=== PATIENT | male | born 1995 | race Caucasian/White ===

== ENCOUNTER 2020-12-14 17:00 | Emergency (ER) | payer OTHER ==
[2020-12-14 17:06] VITALS: RESP 18; TEMP 97.9
--- NOTE | 2020-12-14 18:32 | ED ---
General Adult HPI - General Chief complaint: Overdose Stated complaint: Overdose Time Seen by Provider: 12/14/20 17:03 Source: patient, EMS, RN notes reviewed, old records reviewed Mode of arrival: EMS Limitations: no limitations - History of Present Illness Initial comments: 25-year-old male presents with overdose. He was compensation agent Narcan by EMS total of 4 mg, 2 intranasal, to IV. He admits to snorting both heroin, possibly fentanyl, and Xanax. He states this was not a suicide attempt. He denies any suicidal ideation or increased depression. This was an accidental overdose. He has no physical complaints and is eager for discharge. - Related Data Previous Rx's Medication Instructions Recorded Permethrin 5% Cream [Elimite] 1 applic TOPICAL ONCE #45 cream..g. 04/18/17 hydrOXYzine HCL [Atarax] 25 mg PO TID PRN #20 tab 04/18/17 Allergies Allergy/AdvReac Type Severity Reaction Status Date / Time No Known Allergies Allergy Verified 12/14/20 17:01 Review of Systems ROS Statement: Those systems with pertinent positive or pertinent negative responses have been documented in the HPI. ROS Other: All systems not noted in ROS Statement are negative. Past Medical History Past Medical History: No Reported History History of Any Multi-Drug Resistant Organisms: None Reported Past Surgical History: No Surgical Hx Reported Past Psychological History: ADD/ADHD, Anxiety, Depression Smoking Status: Current every day smoker, Vaper Past Alcohol Use History: None Reported Past Drug Use History: Heroin General Exam Limitations: no limitations General appearance: alert, in no apparent distress Head exam: Present: atraumatic, normocephalic Eye exam: Present: normal appearance, PERRL ENT exam: Present: normal exam Neck exam: Present: normal inspection. Absent: tenderness, meningismus Respiratory exam: Present: normal lung sounds bilaterally. Absent: respiratory distress, wheezes Cardiovascular Exam: Present: normal rhythm, tachycardia GI/Abdominal exam: Present: soft. Absent: distended, tenderness Extremities exam: Present: normal inspection, normal capillary refill. Absent: pedal edema, calf tenderness Neurological exam: Present: alert, oriented X3, CN II-XII intact. Absent: motor sensory deficit Psychiatric exam: Absent: suicidal ideation Skin exam: Present: warm, dry, intact. Absent: cyanosis, diaphoretic Course Vital Signs 12/14/20 12/14/20 17:01 18:00 Temperature 97.9 F Pulse Rate 104 H 110 H Respiratory 18 18 Rate Blood Pressure 133/92 130/85 O2 Sat by Pulse 99 95 Oximetry Medical Decision Making - Medical Decision Making Patient agreed to ED observation, observed for approximately 90 minutes at that time. Patient is asking for discharge. He has not required any additional Narcan. He's been breathing room air with no respiratory depression. He is alert and accompanied by his . Disposition Clinical Impression: Accidental drug overdose, Poisoning by opiates and related narcotics, other Disposition: HOME SELF-CARE Condition: Fair Instructions (If sedation given, give patient instructions): Adult Overdose (ED) Is patient prescribed a controlled substance at d/c from ED?: No Referrals: None,Stated [Primary Care Provider] - 1-2 days Edwina Sadler MD [REFERRING] - 1-2 days Time of Disposition: 18:32
[2020-12-14 18:45] VITALS: BP 106/77; PULSE 119
== END 2020-12-14 18:44 | disposition home or self-care (01) ==
LOC: EC 17:00
DX: T40.601A Poisoning by unspecified narcotics, accidental (unintentional), initial encounter (principal); F17.200 Nicotine dependence, unspecified, uncomplicated; F32.9 Major depressive disorder, single episode, unspecified
CPT/HCPCS: 99285

== ENCOUNTER 2022-03-24 08:49 | Emergency (ER) | payer OTHER ==
[2022-03-24 09:04] VITALS: RESP 18; TEMP 98.2
[2022-03-24] MEDS ORDERED: SODIUM CHLORIDE 0.9% 1,000 ML IV STA (09:10)
[2022-03-24 09:49] LABS: Basophils % (A) 0 %; Eosinophils % (A) 0 %; HCT 38.4 % (39.0-53.0); Lymphocytes # (A) 2.5 k/uL (1.0-4.8); Lymphocytes % (A) 25 %; MCH 28.4 pg (25.0-35.0); MCHC 33.9 g/dL (31.0-37.0); MCV 83.7 fL (80.0-100.0); Mean Platelet Volume 7.4; Monocytes # (A) 0.5 k/uL (0-1.0); Monocytes % (A) 5 %; Neutrophils # (A) 6.6 k/uL (1.3-7.7); Neutrophils % (A) 65 %; Platelet Count 282 k/uL (150-450); RBC 4.58 m/uL (4.30-5.90); RDW 13.7 % (11.5-15.5); WBC 10.1 k/uL (3.8-10.6)
[2022-03-24 10:16] LABS: ALT 77 U/L (4-49); AST 52 U/L (17-59); Acetaminophen <10.0 ug/mL; African American GFR (CKD) >90 (>60 ml/min/1.73 sqM); Albumin 4.2 g/dL (3.5-5.0); Alcohol <10 mg/dL; Alkaline Phosphatase 79 U/L (38-126); Anion Gap 11 mmol/L; Blood Urea Nitrogen 16 mg/dL (9-20); Calcium 8.9 mg/dL (8.4-10.2); Carbon Dioxide 28 mmol/L (22-30); Chloride 99 mmol/L (98-107); Creatine Kinase 83 U/L (55-170); Glucose 111 mg/dL (74-99); Non-African American GFR(CKD) >90 (>60 ml/min/1.73 sqM); Potassium 3.5 mmol/L (3.5-5.1); Salicylate <1.0 mg/dL; Sodium 138 mmol/L (137-145); Total Bilirubin 0.4 mg/dL (0.2-1.3); Total Protein 7.1 g/dL (6.3-8.2)
--- NOTE | 2022-03-24 10:17 | XR ---
EXAMINATION TYPE: XR chest 2V DATE OF EXAM: 03/24/2022 COMPARISON: NONE HISTORY: Overdose, altered mental status TECHNIQUE: Frontal and lateral views of the chest are obtained. FINDINGS: There is no focal air space opacity, pleural effusion, or pneumothorax seen. The cardiac silhouette size is within normal limits. There are overlying leads. The osseous structures are intac t. IMPRESSION: No acute cardiopulmonary process.
--- NOTE | 2022-03-24 12:27 | ED ---
Overdose HPI - General Chief Complaint: Overdose Stated Complaint: overdose Time Seen by Provider: 03/24/22 08:55 Source: EMS Mode of arrival: EMS Limitations: no limitations - History of Present Illness Initial Comments: 27-year-old male who presents to the emergency department after suspected overdose. EMS provided the history. States that the patient was found unconscious by his girlfriend. She called EMS who instructed that she needed to start doing CPR. Unaware if this was provided. I am then told that the patient was thrown and an ice bath. When EMS arrived on scene he was awake alert and answering questions however delayed. Patient admits to me that he crushed up a portion of a Suboxone film and snorted it last night at 8 pm. States that he intermittently uses Suboxone. Also admits to meth use however last use of this was yesterday. Patient denies use of any other illicit substances. Denies intentional harm. No headache, no chest pain, no nausea or vomiting. Patient is very reluctant to provide any history as he is already on probation. No other alleviating, precipitating or modifying factors - Related Data Previous Rx's Medication Instructions Recorded Permethrin 5% Cream [Elimite] 1 applic TOPICAL ONCE #45 cream..g. 04/18/17 hydrOXYzine HCL [Atarax] 25 mg PO TID PRN #20 tab 04/18/17 Allergies Allergy/AdvReac Type Severity Reaction Status Date / Time No Known Allergies Allergy Verified 03/24/22 09:04 Review of Systems ROS Statement: Those systems with pertinent positive or pertinent negative responses have been documented in the HPI. ROS Other: All systems not noted in ROS Statement are negative. Past Medical History Past Medical History: No Reported History History of Any Multi-Drug Resistant Organisms: None Reported Past Surgical History: No Surgical Hx Reported Past Psychological History: ADD/ADHD, Anxiety, Depression Smoking Status: Current every day smoker, Vaper Past Alcohol Use History: None Reported Past Drug Use History: Heroin General Exam Limitations: no limitations General appearance: lethargic, other (Will arouse to tactile and loud verbal stimuli) Head exam: Present: atraumatic, normocephalic, normal inspection Eye exam: Present: normal appearance, PERRL, EOMI. Absent: scleral icterus, conjunctival injection, periorbital swelling ENT exam: Present: normal exam, mucous membranes moist Neck exam: Present: normal inspection. Absent: tenderness, meningismus, lymphadenopathy Respiratory exam: Present: normal lung sounds bilaterally. Absent: respiratory distress, wheezes, rales, rhonchi, stridor Cardiovascular Exam: Present: normal rhythm, tachycardia, normal heart sounds. Absent: systolic murmur, diastolic murmur, rubs, gallop, clicks GI/Abdominal exam: Present: soft, normal bowel sounds. Absent: distended, tenderness, guarding, rebound, rigid Extremities exam: Present: normal inspection, full ROM, normal capillary refill. Absent: tenderness, pedal edema, joint swelling, calf tenderness Back exam: Present: normal inspection Neurological exam: Present: altered, oriented X3, CN II-XII intact Psychiatric exam: Present: normal affect, normal mood Skin exam: Present: warm, dry, intact, normal color. Absent: rash Course Vital Signs 03/24/22 03/24/22 08:52 13:00 Temperature 98.2 F Pulse Rate 104 H 81 Respiratory 18 18 Rate Blood Pressure 136/95 122/80 O2 Sat by Pulse 97 100 Oximetry - Reevaluation(s) Reevaluation #1: At this time the patient has been coaxed several times to provide urine sample however still has not at this time. He is awake, alert. Patient is stable for discharge home at this time. Will obtain serum drug screen 03/24/22 12:23 Medical Decision Making - Medical Decision Making Upon arrival patient was placed into room 12. Thorough history and physical exam was performed. Patient is able to arouse with verbal stimuli and therefore Narcan was not administered. Laboratory studies are conducted. Chest x-rays performed as there is report that CPR may have been administered. Patient is observed in the emergency room for several hours. He does become more alert. I did request a urine sample on multiple occasions however the patient is reluctant to provide one. I did order a serum sample. This is a send out. Patient will be discharged home. Father is at bedside and is agreeable to this plan. Directed to stop using drugs. Follow up with his primary care doctor in 2-4 days and return for any new or worsening symptoms. Patient agreeable discharged home in stable condition - Lab Data Result diagrams: 03/24/22 09:46 03/24/22 09:46 Lab Results 03/24/22 03/24/22 03/24/22 Range/Units 09:46 09:46 09:46 WBC 10.1 (3.8-10.6) k/uL RBC 4.58 (4.30-5.90) m/uL Hgb 13.0 (13.0-17.5) gm/dL Hct 38.4 L (39.0-53.0) % MCV 83.7 (80.0-100.0) fL MCH 28.4 (25.0-35.0) pg MCHC 33.9 (31.0-37.0) g/dL RDW 13.7 (11.5-15.5) % Plt Count 282 (150-450) k/uL MPV 7.4 Neutrophils % 65 % Lymphocytes % 25 % Monocytes % 5 % Eosinophils % 0 % Basophils % 0 % Neutrophils # 6.6 (1.3-7.7) k/uL Lymphocytes # 2.5 (1.0-4.8) k/uL Monocytes # 0.5 (0-1.0) k/uL Eosinophils # 0.0 (0-0.7) k/uL Basophils # 0.0 (0-0.2) k/uL Sodium 138 (137-145) mmol/L Potassium 3.5 (3.5-5.1) mmol/L Chloride 99 (98-107) mmol/L Carbon Dioxide 28 (22-30) mmol/L Anion Gap 11 mmol/L BUN 16 (9-20) mg/dL Creatinine 0.80 (0.66-1.25) mg/dL Est GFR (CKD-EPI)AfAm >90 (>60 ml/min/1.73 sqM) Est GFR (CKD-EPI)NonAf >90 (>60 ml/min/1.73 sqM) Glucose 111 H (74-99) mg/dL Plasma Lactic Acid Willian 1.1 (0.7-2.0) mmol/L Calcium 8.9 (8.4-10.2) mg/dL Total Bilirubin 0.4 (0.2-1.3) mg/dL AST 52 (17-59) U/L ALT 77 H (4-49) U/L Alkaline Phosphatase 79 (38-126) U/L Creatine Kinase 83 (55-170) U/L Troponin I (0.000-0.034) ng/mL Total Protein 7.1 (6.3-8.2) g/dL Albumin 4.2 (3.5-5.0) g/dL Salicylates <1.0 mg/dL Blood Opiate Screen Blood Methadone Screen Bld Propoxyphene Scrn Acetaminophen <10.0 ug/mL Bld Barbiturates Scrn Bld Phencyclidine Scrn Bld Amphetamines Scrn Bl Benzodiazepine Scrn Bld Cocaine/Metab Scrn Bld Cannabinoid Screen Serum Alcohol <10 mg/dL Plasma/Serum Ethyl Alc 03/24/22 03/24/22 Range/Units 09:46 13:26 WBC (3.8-10.6) k/uL RBC (4.30-5.90) m/uL Hgb (13.0-17.5) gm/dL Hct (39.0-53.0) % MCV (80.0-100.0) fL MCH (25.0-35.0) pg MCHC (31.0-37.0) g/dL RDW (11.5-15.5) % Plt Count (150-450) k/uL MPV Neutrophils % % Lymphocytes % % Monocytes % % Eosinophils % % Basophils % % Neutrophils # (1.3-7.7) k/uL Lymphocytes # (1.0-4.8) k/uL Monocytes # (0-1.0) k/uL Eosinophils # (0-0.7) k/uL Basophils # (0-0.2) k/uL Sodium (137-145) mmol/L Potassium (3.5-5.1) mmol/L Chloride (98-107) mmol/L Carbon Dioxide (22-30) mmol/L Anion Gap mmol/L BUN (9-20) mg/dL Creatinine (0.66-1.25) mg/dL Est GFR (CKD-EPI)AfAm (>60 ml/min/1.73 sqM) Est GFR (CKD-EPI)NonAf (>60 ml/min/1.73 sqM) Glucose (74-99) mg/dL Plasma Lactic Acid Willian (0.7-2.0) mmol/L Calcium (8.4-10.2) mg/dL Total Bilirubin (0.2-1.3) mg/dL AST (17-59) U/L ALT (4-49) U/L Alkaline Phosphatase (38-126) U/L Creatine Kinase (55-170) U/L Troponin I 0.032 (0.000-0.034) ng/mL Total Protein (6.3-8.2) g/dL Albumin (3.5-5.0) g/dL Salicylates mg/dL Blood Opiate Screen Negative Blood Methadone Screen Negative Bld Propoxyphene Scrn Negative Acetaminophen ug/mL Bld Barbiturates Scrn Negative Bld Phencyclidine Scrn Negative Bld Amphetamines Scrn Negative Bl Benzodiazepine Scrn Negative Bld Cocaine/Metab Scrn Negative Bld Cannabinoid Screen Positive Serum Alcohol mg/dL Plasma/Serum Ethyl Alc Negative - EKG Data EKG Comments: EKG demonstrates sinus rhythm with a rate of 96. MA interval 162. QRS 68. QTC of 406. No acute ST segment elevations or depressions Disposition Clinical Impression: Opiate overdose Disposition: HOME SELF-CARE Condition: Stable Instructions (If sedation given, give patient instructions): Adult Overdose (ED) Additional Instructions: Review recommend that you stop using medications that are not prescribed to you. Stop using illicit drugs. Follow up with your doctor and return for any new or worsening symptoms Is patient prescribed a controlled substance at d/c from ED?: No Referrals: None,Stated [Primary Care Provider] - 1-2 days [facility] [NON-STAFF] - 1-2 days Time of Disposition: 12:26
[2022-03-24 13:01] VITALS: BP 122/80; PULSE 81
[2022-03-25 11:39] LABS: Serum Amphetamine Negative; Serum Barbiturates Negative; Serum Benzodiazepine Negative; Serum Cocaine Negative; Serum Methadone Negative; Serum Opiates Negative; Serum Phencyclidine Negative; Serum Propoxyphene Negative; Serum THC (Cannabis) Positive
== END 2022-03-24 13:01 | disposition home or self-care (01) ==
LOC: EC 08:49
DX: T40.2X1A Poisoning by other opioids, accidental (unintentional), initial encounter (principal); F17.290 Nicotine dependence, other tobacco product, uncomplicated; Y92.89 Other specified places as the place of occurrence of the external cause
CPT/HCPCS: 36415; 93005; 80053; 82550; 83605; 84484; 85025; 80307; 80143; 80179; 71046; 99285; 96360; G0480; 80320

== ENCOUNTER 2022-04-05 18:27 | Emergency (ER) | payer OTHER ==
[2022-04-05 18:39] VITALS: BP 120/78; PULSE 126; RESP 18; TEMP 97.8
--- NOTE | 2022-04-05 18:53 | ED ---
General Adult HPI - General Chief complaint: Overdose Stated complaint: Overdose Time Seen by Provider: 04/05/22 18:29 Source: patient, EMS, RN notes reviewed, old records reviewed Mode of arrival: EMS Limitations: no limitations - History of Present Illness Initial comments: 27-year-old male who been brought in for suspected overdose. Patient was found in the restroom of a local grocery store. He been given intranasal Narcan. The patient states that he had taken when he fell was methamphetamine by local law enforcement believe this was laced with fentanyl. He was awake and alert during transport by paramedics. He did have a warrant out for his arrest. He is only complaint is that he is cold. - Related Data Previous Rx's Medication Instructions Recorded Permethrin 5% Cream [Elimite] 1 applic TOPICAL ONCE #45 cream..g. 04/18/17 hydrOXYzine HCL [Atarax] 25 mg PO TID PRN #20 tab 04/18/17 Allergies Allergy/AdvReac Type Severity Reaction Status Date / Time No Known Allergies Allergy Verified 03/24/22 09:04 Review of Systems ROS Statement: Those systems with pertinent positive or pertinent negative responses have been documented in the HPI. ROS Other: All systems not noted in ROS Statement are negative. Past Medical History Past Medical History: No Reported History History of Any Multi-Drug Resistant Organisms: None Reported Past Surgical History: No Surgical Hx Reported Past Psychological History: ADD/ADHD, Anxiety, Depression Smoking Status: Current every day smoker, Vaper Past Alcohol Use History: None Reported Past Drug Use History: Heroin General Exam Limitations: no limitations General appearance: alert, in no apparent distress Head exam: Present: atraumatic, normocephalic Eye exam: Present: normal appearance, PERRL ENT exam: Present: normal exam Neck exam: Present: normal inspection. Absent: tenderness, meningismus Respiratory exam: Present: normal lung sounds bilaterally. Absent: respiratory distress, wheezes Cardiovascular Exam: Present: normal rhythm, tachycardia GI/Abdominal exam: Present: soft. Absent: distended, tenderness, guarding Extremities exam: Present: normal inspection, normal capillary refill Neurological exam: Present: alert, oriented X3, motor sensory deficit Psychiatric exam: Present: anxious Skin exam: Present: warm, dry, intact. Absent: cyanosis, diaphoretic Course Vital Signs 04/05/22 18:33 Temperature 97.8 F Pulse Rate 126 H Respiratory 18 Rate Blood Pressure 120/78 O2 Sat by Pulse 99 Oximetry Medical Decision Making - Medical Decision Making Patient was breathing spontaneously, alert and oriented. Plan was to observe the patient emergency department and discharged into police custody once medically cleared. The patient did elope from the emergency department. He ran despite attempts by multiple staff members to detain him. Patient was alert and oriented at the time of this elopement. Disposition Clinical Impression: Opiate overdose Disposition: Left Against Medical Advice Condition: Fair Instructions (If sedation given, give patient instructions): Adult Overdose (ED) Is patient prescribed a controlled substance at d/c from ED?: No Referrals: None,Stated [Primary Care Provider] - 1-2 days Time of Disposition: 18:52
== END 2022-04-05 19:30 | disposition left against medical advice (07) ==
LOC: EC 18:27
DX: T40.2X1A Poisoning by other opioids, accidental (unintentional), initial encounter (principal); F41.9 Anxiety disorder, unspecified; F32.A Depression, unspecified; F17.290 Nicotine dependence, other tobacco product, uncomplicated; Z53.29 Procedure and treatment not carried out because of patient's decision for other reasons
CPT/HCPCS: 99284